=== PATIENT | female | born 1990 | race Caucasian/White ===

== ENCOUNTER 2016-06-26 18:11 | Emergency (ER) | payer OTHER ==
[2016-06-26 18:24] VITALS: BP 126/70; PULSE 93; TEMP 97.8; BMI 25.9
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
[2016-06-26 18:41] LABS: PH,URINE 8.5 (4.5-8); URINE APPEARANCE Clear; URINE BILIRUBIN Negative (NEGATIVE); URINE BLOOD Negative (NEGATIVE); URINE COLOR YELLOW; URINE GLUCOSE (UA) Negative (NEGATIVE); URINE KETONE Negative (NEGATIVE); URINE LEUK ESTERASE Negative (NEGATIVE); URINE NITRITE Negative (NEGATIVE); URINE PROTEIN Negative (NEGATIVE); URINE UROBILINOGEN 1.0 E.U/dl (0.2-1.0)
[2016-06-26 18:51] LABS: MEAN CELL VOLUME 89.4 fl (80-96)
[2016-06-26 18:59] LABS: BASOPHIL 0.6 % (0-2.0); EOSINOPHIL 1.2 % (0-4.5); MCH 28.5 pg (25.7-33.7); MCHC 31.9 g/dl (32.0-36.0); MEAN PLT VOLUME 10.3 fl (7.5-11.1); NEUTROPHILS 64.3 % (42.8-82.8); PLATELET COUNT 184 K/MM3 (134-434); RDW 12.8 % (11.6-15.6); WHITE BLOOD COUNT 6.9 K/mm3 (4.0-10.0)
[2016-06-26 19:09] LABS: ALBUMIN 4.1 g/dl (3.5-5.0); ALK PHOS 28 U/L (32-92); ANION GAP 5 (8-16); BILIRUBIN,TOTAL 0.3 mg/dl (0.2-1.0); CALCIUM 8.7 mg/dl (8.4-10.2); CO2 27 mmol/L (22-28); CREATININE 0.8 mg/dl (0.6-1.3); GLUCOSE,RANDOM 102 mg/dl (74-106); SGOT/AST 19 U/L (10-42); SGPT/ALT 11 U/L (10-40); TOT PROT 6.9 g/dl (6.4-8.3)
--- NOTE | 2016-06-26 19:15 | PDOC ---
*Physical Exam - Vital Signs Last Vital Signs Temp Pulse Resp BP Pulse Ox 97.8 F 93 H 18 126/70 100 06/26/16 18:17 06/26/16 18:17 06/26/16 18:17 06/26/16 18:17 06/26/16 18:17 <Blanco Lacy - Last Filed: 06/26/16 20:03> - Vital Signs Last Vital Signs Temp Pulse Resp BP Pulse Ox 97.8 F 93 H 18 126/70 100 06/26/16 18:17 06/26/16 18:17 06/26/16 18:17 06/26/16 18:17 06/26/16 18:17 <Zaid Mac - Last Filed: 06/26/16 23:06> ED Treatment Course - LABORATORY CBC & Chemistry Diagram: 06/26/16 18:40 06/26/16 18:40 - ADDITIONAL ORDERS Additional order review: Laboratory Results 06/26/16 06/26/16 18:40 18:32 Sodium 135 L Potassium 4.2 Chloride 103 Carbon Dioxide 27 Anion Gap 5 L BUN 9 Creatinine 0.8 Creat Clearance w eGFR > 60 Random Glucose 102 Calcium 8.7 Total Bilirubin 0.3 AST 19 ALT 11 Alkaline Phosphatase 28 L Total Protein 6.9 Albumin 4.1 Lipase 33 Urine Color Yellow Urine Appearance Clear Urine pH 8.5 H Ur Specific [place] 1.015 Urine Protein Negative Urine Glucose (UA) Negative Urine Ketones Negative Urine Blood Negative Urine Nitrite Negative Urine Bilirubin Negative Urine Urobilinogen 1.0 e.u/dl Ur Leukocyte Esterase Negative Urine HCG, Qual Negative 06/26/16 18:40 RBC 4.86 MCV 89.4 MCHC 31.9 L RDW 12.8 MPV 10.3 Neutrophils % 64.3 Lymphocytes % 26.1 Monocytes % 7.8 Eosinophils % 1.2 Basophils % 0.6 <Blanco Lacy - Last Filed: 06/26/16 20:03> - LABORATORY CBC & Chemistry Diagram: 06/26/16 18:40 06/26/16 18:40 - ADDITIONAL ORDERS Additional order review: Laboratory Results 06/26/16 06/26/16 18:40 18:32 Sodium 135 L Potassium 4.2 Chloride 103 Carbon Dioxide 27 Anion Gap 5 L BUN 9 Creatinine 0.8 Creat Clearance w eGFR > 60 Random Glucose 102 Calcium 8.7 Total Bilirubin 0.3 AST 19 ALT 11 Alkaline Phosphatase 28 L Total Protein 6.9 Albumin 4.1 Lipase 33 Urine Color Yellow Urine Appearance Clear Urine pH 8.5 H Ur Specific [place] 1.015 Urine Protein Negative Urine Glucose (UA) Negative Urine Ketones Negative Urine Blood Negative Urine Nitrite Negative Urine Bilirubin Negative Urine Urobilinogen 1.0 e.u/dl Ur Leukocyte Esterase Negative Urine HCG, Qual Negative <Zaid Mac - Last Filed: 06/26/16 23:06> Medical Decision Making - Medical Decision Making 06/26/16 20:03 CONTINUATION CARE: The patient is experiencing pain in her upper right rib cage. Pain is exasperated by deep inhalation and eating. We are waiting on X- Ray and labs. <Blanco Lacy - Last Filed: 06/26/16 20:03> *DC/Admit/Observation/Transfer <Blanco Lacy - Last Filed: 06/26/16 20:03> - Discharge Dispostion Admit: No - Attestations Physician Attestion: 06/26/16 19:15 I, Dr. Zaid Mac, attest that this document has been prepared under my direction and personally reviewed by me in its entirety. I further attest, that it accurately reflects all work, treatment, procedures and medical decision -making performed by me. <Zaid Mac - Last Filed: 06/26/16 23:06> Diagnosis at time of Disposition: Flank pain, Rib pain on right side - Discharge Dispostion Disposition: HOME Condition at time of disposition: Good
[2016-06-26] MEDS ORDERED: ONDANSETRON 4 MG/2 ML VIAL IVPUSH ONE (20:53)
[2016-06-26] MEDS ORDERED: methylPREDNISolone NA SUCC 125 MG/2 ML VIAL IVPUSH ONE (20:53)
[2016-06-26] MEDS ORDERED: FAMOTIDINE 20 MG/50 ML IVPB 50 ML IVPB ONE ×2 (20:53→20:57)
[2016-06-26] MEDS ORDERED: HYDROmorphone HCL CARPU-JECT 1 MG/1 ML DISP.SYRIN IVPUSH ONE (20:53)
[2016-06-26] MEDS ORDERED: SODIUM CHLORIDE 1,000 ML IV STA (20:55)
[2016-06-26] MEDS ORDERED: HYDROmorphone HCL CARPU-JECT 2 MG/1 ML DISP.SYRIN ONE (20:57)
[2016-06-26] MEDS ORDERED: methylPREDNISolone NA SUCC 125 MG/2 ML VIAL ONE (20:57)
[2016-06-26] MEDS ORDERED: ONDANSETRON 4 MG/2 ML VIAL ONE (20:58)
== END 2016-06-26 23:17 | disposition home or self-care (01) ==
LOC: FER 18:11
PROC: 3E033NZ Introduction of Analgesics, Hypnotics, Sedatives into Peripheral Vein, Percutaneous Approach (ICD-10-PCS; principal; 2016-06-26)
PROC: 3E033GC Introduction of Other Therapeutic Substance into Peripheral Vein, Percutaneous Approach (ICD-10-PCS; 2016-06-26)
PROC: 3E0337Z Introduction of Electrolytic and Water Balance Substance into Peripheral Vein, Percutaneous Approach (ICD-10-PCS; 2016-06-26)
DX: R07.81 Pleurodynia (principal); R10.31 Right lower quadrant pain; E03.9 Hypothyroidism, unspecified
CPT/HCPCS: 36415; 71275-TC; 76705-TC; 80053; 81003; 83690; 84703; 85025; 99285-25

== ENCOUNTER 2016-07-15 10:27 | Emergency (ER) | payer OTHER ==
[2016-07-15 10:31] VITALS: BP 134/90; PULSE 84; TEMP 98.8; BMI 25.9
--- NOTE | 2016-07-15 11:25 | PDOC ---
History of Present Illness - General Chief Complaint: Cold Symptoms Stated Complaint: BODY ACHES, FEVER, COUGH Time Seen by Provider: 07/15/16 10:58 History Source: Patient Exam Limitations: No Limitations - History of Present Illness Initial Comments: 07/15/16 11:18 This is a 25-year-old female with a history of hypothyroidism presented to the emergency department with complaints of cough and myalgias Symptoms have been present for the past 4 days (+) fevers (+) headache (+) post nasal drip (+) myalgias Taking motrin/tylenol for her symptoms but remains febrile No recent travel (+) ill contact = father (who was diagnosed with Influenza) No chest pain No dyspnea on exertion Cough is productive of yellow sputum (+) influenza vaccination PMH: Hypothyroidism PSH: denies Medications: Hypothyroidism, Synthroid ALL: NKDA Social: denies alcohol drug cigarette use PMD: [place] GENERAL/CONSTITUTIONAL: Yes: fever, chills No: weakness, loss of appetite. HEAD, EYES, EARS, NOSE AND THROAT: No: change in vision, ear pain, discharge, sore throat, throat swelling. CARDIOVASCULAR: No: chest pain, lightheadedness, palpitations, syncope RESPIRATORY: Yes: cough, shortness of breath No: wheezing, hemoptysis, stridor. GASTROINTESTINAL: No: nausea, vomiting, diarrhea, abdominal cramping, rectal bleeding, constipation. GENITOURINARY: No: dysuria, hematuria, frequency, urgency, flank pain. MUSCULOSKELETAL: Yes: myalgias No: back pain, neck pain, joint pain, muscle swelling or pain SKIN: No: lesions, pallor, rash or easy bruising. NEUROLOGIC: No: headache, vertigo, paresthesias, weakness ENDOCRINE: No: unexplained weight gain or loss HEMATOLOGIC/LYMPHATIC: No: anemia, easy bleeding, swelling nodes. GENERAL: The patient is in no acute distress. HEAD: Normal with no signs of trauma. EYES: PERRLA, EOMI, sclera anicteric, conjunctiva clear. ENT: Ears normal, nares patent, oropharynx clear without exudates. Moist mucous membranes. NECK: Normal range of motion, supple without lymphadenopathy, JVD, or masses. LUNGS: Breath sounds equal, clear to auscultation bilaterally. No wheezes, and no crackles. HEART:Regular rate and rhythm, normal S1 and S2 without murmur, rub or gallop. ABDOMEN: Soft, nontender, normoactive bowel sounds. No guarding, no rebound. No masses palpable. EXTREMITIES: Normal range of motion, no edema. No clubbing or cyanosis. No erythema, or tenderness. NEUROLOGICAL: Cranial nerves II through XII grossly intact. Normal speech. No focal neurological deficits. MUSCULOSKELETAL: Back non-tender to palpation, no CVA tenderness SKIN: Warm, Dry, normal turgor, no rashes or lesions noted. 07/15/16 11:28 Past History - Past Medical History Allergies/Adverse Reactions: Allergies Allergy/AdvReac Type Severity Reaction Status Date / Time iodine Allergy Verified 07/15/16 10:29 SEAFOOD Allergy Severe Hives Uncoded 07/15/16 10:29 WALNUTS Allergy Severe Swelling Uncoded 07/15/16 10:29 Home Medications: Ambulatory Orders Thyroid,Pork [[place] Thyroid] 15 mg PO DAILY 07/21/14 Azithromycin [Zithromax 250mg Tablets -] 250 mg PO UTDICT #6 tab 07/15/16 Guaifenesin [Mucinex -] 600 mg PO BID #14 tablet.er 07/15/16 Oseltamivir Phosphate [Tamiflu -] 75 mg PO BID #10 capsule 07/15/16 Thyroid Disease: Yes (hypo) - Immunization History Immunization Up to Date: No - Psycho/Social/Smoking Cessation Hx Anxiety: No Suicidal Ideation: No Smoking Status: No Smoking History: Never smoked Number of Cigarettes Smoked Daily: 0 Hx Alcohol Use: No Drug/Substance Use Hx: No Substance Use Type: None *Physical Exam - Vital Signs Last Vital Signs Temp Pulse Resp BP Pulse Ox 98.8 F 84 16 134/90 100 07/15/16 10:28 07/15/16 10:28 07/15/16 10:28 07/15/16 10:28 07/15/16 10:28 Medical Decision Making - Medical Decision Making 07/15/16 11:25 Will discharge to home Does not want x ray or flu swab Will discharge on tamiflu and Azithromycin Clinical impression: upper respiratory infection *DC/Admit/Observation/Transfer Diagnosis at time of Disposition: Viral upper respiratory illness - Discharge Dispostion Disposition: HOME Condition at time of disposition: Improved Admit: No - Prescriptions Prescriptions: Guaifenesin [Mucinex -] 600 mg PO BID #14 tablet.er Oseltamivir Phosphate [Tamiflu -] 75 mg PO BID #10 capsule Azithromycin [Zithromax 250mg Tablets -] 250 mg PO UTDICT #6 tab - Referrals Referrals: Dillan Yi MD [Primary Care Provider] - - Patient Instructions Printed Discharge Instructions: DI for Viral Upper Respiratory Infection -- Adult Additional Instructions: Return to the emergency department immediately with ANY new, persistent or worsening symptoms. Continue any medications as previously prescribed by your physician. You should follow up with your primary doctor as soon as possible regarding today's emergency department visit. . Please make sure your doctor reviews the results of your emergency evaluation. Thank you for coming to the [facility] today for your care. It was a pleasure to see you today. Please note that your evaluation is INCOMPLETE until you follow-up with your doctor. - Post Discharge Activity Work/School Note: Back to Work
== END 2016-07-15 11:45 | disposition home or self-care (01) ==
LOC: FER 10:27
DX: J06.9 Acute upper respiratory infection, unspecified (principal); B97.89 Other viral agents as the cause of diseases classified elsewhere
CPT/HCPCS: 99281-25

== ENCOUNTER 2016-12-26 22:25 | Emergency (ER) | payer OTHER ==
[2016-12-26 22:32] VITALS: BP 117/80; PULSE 85; TEMP 97.9; BMI 25.8
--- NOTE | 2016-12-26 22:42 | PDOC ---
History of Present Illness - General Chief Complaint: Cold Symptoms Stated Complaint: COUGH Time Seen by Provider: 12/26/16 22:39 History Source: Patient Exam Limitations: No Limitations - History of Present Illness Initial Comments: 12/26/16 22:43 This is a 26-year-old female who comes in complaining of URI-type symptoms cough , congestion and hoarse voice. Patient denies any fevers or chills. Patient said her cough is nonproductive. Patient denies any chest pain or abdominal pain. Patient is otherwise healthy. PAST MEDICAL HISTORY: no significant history PAST SURGICAL HISTORY: no significant history FAMILY HISTORY: no pertinant history SOCIAL HISTORY: Pt lives with family and is employed. MEDICATIONS: reviewed ALLERGIES: As per nursing notes Review of Systems General: No fevers or chills, no weakness, no weight loss HEENT: No change in vision. No sore throat,. No ear pain CardioVascular: No chest pain or shortness of breath Respiratory:+ Coughing, no wheezing Gastrointestinal: no nausea, vomitting, diarrhea or constipation, No rectal bleeding Genitourinary: No dysuria, hematuria, or frequency Musculoskeletal: No joint or muscle pain or swelling Neurologic: No headache, vertigo, dizziness or loss of consciousness Psychiatric: nor depression Skin: No rashes or easy bruising Endocrine: no increased thirst or abnormal weight change Allergic: no skin or latex allergy All other systems reviewed and normal Exam: General: Well-nourished well-developed individual, no acute distress HEENT: Throat: Normal, tonsils normal, no erythema or exudate Neck: Supple, no meningeal signs, no lymphadenopathy Eyes::Pupils equal reactive and round, extraocular motion intact Chest: Nontender to palpation Cardiac: S1-S2 normal, regular rate and rhythm, no murmurs rubs or gallops Respiratory: Lungs clear to auscultation bilateral Abdomen: Soft, nondistended, normal bowel sounds, nontender to palpation diffusely Extremities: Warm, dry, no cyanosis, clubbing, or edema Skin: No rashes Neuro: Alert and oriented x3, nonfocal exam, grossly intact, normal gait Psych: Normal mood and affect 12/26/16 23:14 Chest x-ray no acute pathology Assessment and plan: This is a 26-year-old female who comes in complaining of cough 2 days. Patient's lungs were clear and her chest x-ray is negative however I did give her a prescription for Ventolin and some Tessalon Perles as she said that they have helped in the past. Patient does have a primary care doctor she can follow-up with. Past History - Past Medical History Allergies/Adverse Reactions: Allergies Allergy/AdvReac Type Severity Reaction Status Date / Time iodine Allergy Verified 07/15/16 10:29 SEAFOOD Allergy Severe Hives Uncoded 07/15/16 10:29 WALNUTS Allergy Severe Swelling Uncoded 07/15/16 10:29 Home Medications: Ambulatory Orders Thyroid,Pork [[place] Thyroid] 15 mg PO DAILY 07/21/14 Albuterol Sulfate Inhaler - [Ventolin Hfa Inhaler -] 1 - 2 inh PO Q4H #1 inhaler 12/26/16 Benzonatate [Tessalon Pearls -] 100 mg PO TID #21 capsule 12/26/16 Thyroid Disease: Yes (hypo) - Immunization History Immunization Up to Date: No - Psycho/Social/Smoking Cessation Hx Anxiety: No Suicidal Ideation: No Smoking Status: No Smoking History: Unknown if ever smoked Have you smoked in the past 12 months: No Number of Cigarettes Smoked Daily: 0 Information on smoking cessation initiated: No Hx Alcohol Use: No Drug/Substance Use Hx: No Substance Use Type: None *Physical Exam - Vital Signs Last Vital Signs Temp Pulse Resp BP Pulse Ox 97.9 F 85 14 117/80 100 12/26/16 22:29 12/26/16 22:29 12/26/16 22:29 12/26/16 22:29 12/26/16 22:29 *DC/Admit/Observation/Transfer Diagnosis at time of Disposition: Viral upper respiratory illness - Discharge Dispostion Disposition: HOME Condition at time of disposition: Good Admit: No - Prescriptions Prescriptions: Benzonatate [Tessalon Pearls -] 100 mg PO TID #21 capsule Albuterol Sulfate Inhaler - [Ventolin Hfa Inhaler -] 1 - 2 inh PO Q4H #1 inhaler - Patient Instructions Printed Discharge Instructions: DI for Viral Upper Respiratory Infection -- Adult Additional Instructions: Use the Ventolin inhaler 2 puffs as often as every 4-6 hours if needed for coughing and shortness of breath. In addition to that I am giving you a cough suppressant called Tessalon Perles U can take 13 times a day. Do not chew the Tessalon Perle as it will numb your mouth and be very uncomfortable. Return to the emergency department immediately with ANY new, persistent or worsening symptoms. Continue any medications as previously prescribed by your physician. You should follow up with your primary doctor as soon as possible regarding today's emergency department visit. . Please make sure your doctor reviews the results of your emergency evaluation. Thank you for coming to the Emergency Department today for your care. It was a pleasure to see you today. Please note that your evaluation is INCOMPLETE until you follow-up with your doctor.
[2016-12-26] MEDS ORDERED: ALBUTEROL SO4 0.083% IH SOL 2.5 MG/3 ML VIAL.NEB. NEB ONE (23:21)
== END 2016-12-26 23:17 | disposition home or self-care (01) ==
LOC: FER 22:25
DX: J06.9 Acute upper respiratory infection, unspecified (principal); B97.89 Other viral agents as the cause of diseases classified elsewhere; E03.9 Hypothyroidism, unspecified
CPT/HCPCS: 71020-TC; 99282-25

== ENCOUNTER 2018-02-05 07:15 | Emergency (ER) | payer OTHER ==
[2018-02-05 07:24] VITALS: BMI 24.5
--- NOTE | 2018-02-05 07:40 | PDOC ---
History of Present Illness - History of Present Illness Initial Comments: 02/05/18 08:54 The patient is a 27 year old female, with a significant past medical history of anxiety, hypothyroidism, and herniated disc, who presents to the emergency department with, worsening periumbilical pain. As per patient her pain initially onset as intermittent one week ago. Over the past two days, she reports her symptoms have become constant with associated nausea. She describes her pain as a knot-like feeling worsening after certain foods and drinks such as coffee. Her pain is alleviated after hot tea. She has tried antiacids, without relief. Her last bowel movement was yesterday. Her LMP was 01/12/18. She denies recent fevers, chills, headache or dizziness. She denies recent vomit , diarrhea or constipation. She denies recent dysuria, frequency, urgency or hematuria. She denies recent chest pain or shortness of breath. Allergies: Iodine, shellfish, nuts. Social history: Nonsmoker. Denies EtOH use and recreational drug use. Primary Care Physician: Dr. Yi <Kirk Cortés - Last Filed: 02/05/18 08:54> - General History Source: Patient Exam Limitations: No Limitations <Katiuska Lizarraga - Last Filed: 02/05/18 13:50> - General Chief Complaint: Pain, Acute Stated Complaint: PAIN Time Seen by Provider: 02/05/18 07:39 Past History <Kirk Cortés - Last Filed: 02/05/18 08:54> - Travel Traveled outside of the country in the last 30 days: No Close contact w/someone who was outside of country & ill: No - Past Medical History COPD: No Thyroid Disease: Yes (hypo) - Immunization History Immunization Up to Date: Yes - Suicide/Smoking/Psychosocial Hx Smoking Status: No Smoking History: Unknown if ever smoked Have you smoked in the past 12 months: No Number of Cigarettes Smoked Daily: 0 Hx Alcohol Use: No Drug/Substance Use Hx: No Substance Use Type: None <Katiuska Lizarraga - Last Filed: 02/05/18 13:50> - Past Medical History Allergies/Adverse Reactions: Allergies Allergy/AdvReac Type Severity Reaction Status Date / Time iodine Allergy Verified 02/05/18 07:30 SEAFOOD Allergy Severe Hives Uncoded 02/05/18 07:30 WALNUTS Allergy Severe Swelling Uncoded 02/05/18 07:30 Home Medications: Ambulatory Orders Ibuprofen 800 mg PO TID #30 tablet 02/05/18 Thyroid,Pork [Customer Operations Representative Thyroid] 30 mg PO DAILY 02/05/18 Review of Systems - Review of Systems Able to Perform ROS?: Yes Comments:: 02/05/18 07:40 CONSTITUTIONAL: Absent: fever, chills, diaphoresis, generalized weakness, malaise, loss of appetite HEENT: Absent: rhinorrhea, nasal congestion, throat pain, throat swelling, difficulty swallowing, mouth swelling, ear pain, eye pain, visual Changes CARDIOVASCULAR: Absent: chest pain, loss of consciousness, palpitations, irregular heart rate, peripheral edema RESPIRATORY: Absent: cough, shortness of breath, dyspnea with exertion, orthopnea, wheezing, stridor, hemoptysis GASTROINTESTINAL: Absent: abdominal pain, abdominal distension, nausea, vomiting, diarrhea, constipation, melena, hematochezia GENITOURINARY: Absent: dysuria, frequency, urgency, hesitancy, hematuria, flank pain, genital pain MUSCULOSKELETAL: Absent: myalgia, arthralgia, joint swelling SKIN: Absent: rash, itching, pallor HEMATOLOGIC/IMMUNOLOGIC: Absent: easy bleeding, easy bruising, lymphadenopathy, frequent infections ENDOCRINE: Absent: unexplained weight gain, unexplained weight loss, heat intolerance, cold intolerance NEUROLOGIC: Absent: headache, focal weakness or paresthesias, dizziness, unsteady gait, seizure, mental status changes, bladder or bowel incontinence PSYCHIATRIC: Absent: anxiety, depression, suicidal or homicidal ideation, hallucinations. Is the patient limited Hebrew proficient: No <Katiuska Lizarraga - Last Filed: 02/05/18 13:50> *Physical Exam - Vital Signs Last Vital Signs Temp Pulse Resp BP Pulse Ox 98.2 F 88 16 113/66 99 02/05/18 07:21 02/05/18 07:21 02/05/18 07:21 02/05/18 07:21 02/05/18 07:21 <Kirk Cortés - Last Filed: 02/05/18 08:54> - Vital Signs Last Vital Signs Temp Pulse Resp BP Pulse Ox 98.2 F 88 16 113/66 99 02/05/18 07:21 02/05/18 07:21 08/15/18 07:21 02/05/18 07:21 02/05/18 07:21 - Physical Exam Comments: 02/05/18 07:40 GENERAL: Well developed, well nourished. Awake and alert. No acute distress. HEENT: Normocephalic, atraumatic. PERRLA, EOMI. No conjunctival pallor. Sclera are non- icteric. Moist mucous membranes. Oropharynx is clear. NECK: Supple. Full ROM. No JVD. Carotid pulses 2+ and symmetric, without bruits. No thyromegaly. No lymphadenopathy. CARDIOVASCULAR: Regular rate and rhythm. No murmurs, rubs, or gallops. Distal pulses are 2+ and symmetric. PULMONARY: No evidence of respiratory distress. Lungs clear to auscultation bilaterally. No wheezing, rales or rhonchi. ABDOMINAL: Soft. Non-tender. Non-distended. No rebound or guarding. No organomegaly. Normoactive bowel sounds. MUSCULOSKELETAL Normal range of motion at all joints. No bony deformities or tenderness. No CVA tenderness. EXTREMITIES: No cyanosis. No clubbing. No edema. No calf tenderness. SKIN: Warm and dry. Normal capillary refill. No rashes. No jaundice. NEUROLOGICAL: Alert, awake, appropriate. Cranial nerves 2-12 intact. No deficits to light touch and temperature in face, upper extremities and lower extremities. No motor deficits in the in face, upper extremities and lower extremities. Normoreflexic in the upper and lower extremities. Normal speech. Toes are down- going bilaterally. Gait is normal without ataxia. PSYCHIATRIC: Cooperative. Good eye contact. Appropriate mood and affect. <Katiuska Lizarraga - Last Filed: 02/05/18 13:50> ED Treatment Course - LABORATORY CBC & Chemistry Diagram: 02/05/18 08:25 02/05/18 08:25 - ADDITIONAL ORDERS Additional order review: Laboratory Results 02/05/18 02/05/18 08:25 08:25 Lipase Cancelled Urine HCG, Qual Negative 02/05/18 08:25 RBC 4.44 MCV 90.0 MCHC 34.0 RDW 13.1 MPV 11.0 Neutrophils % 66.1 Lymphocytes % 23.5 Monocytes % 9.2 Eosinophils % 0.8 Basophils % 0.4 - Medications Given in the ED: ED Medications Discontinued Medications Generic Name Dose Route Start Last Admin Trade Name Nessa PRN Reason Stop Dose Admin Acetaminophen 1,000 mg 02/05/18 08:21 02/05/18 08:44 Ofirmev Injection - IVPB 02/05/18 08:22 1,000 mg ONCE ONE Administration <OksanajessicaKirk - Last Filed: 02/05/18 08:54> - LABORATORY CBC & Chemistry Diagram: 02/05/18 08:25 02/05/18 08:25 <Katiuska Lizarraga - Last Filed: 02/05/18 13:50> Medical Decision Making - Medical Decision Making 02/05/18 13:16 A portion of this note was documented by scribe services under my direction. I have reviewed the details of the note, within reason, and agree with the documentation with the following case summary and management plan written by me. Patient is a 27-year-old female with past medical history of hypothyroidism, who presents to the emergency department today with left lower quadrant pain as well as epigastric tenderness. On exam patient states that she also has some periumbilical tenderness and some rebound. Lab work is unremarkable, no leukocytosis, H&H is stable. No gross electorally abnormalities no UTI patient is not . Abdominal ultrasound shows no evidence of cholecystitis at this time. CT of the abdomen shows multiple cysts on both ovaries with fluid in the cul-de- sac suspicious for ruptured cyst. Patient reports improvement of her symptoms after IV Tylenol, Toradol. Given the patient's pain has improved since presentation, low suspicion for ovarian torsion. We'll discharge home at this time with strict return precautions. Patient understands that if her pain is to get worse she is to return to the emergency department for an ultrasound of her ovaries, to rule out torsion. Discussed the risks of torsion and why it is important to return to the emergency department if she has worsening pain, fevers, chills, nausea or vomiting. Patient states that she will follow up with an STILL TENDER. Multiple referrals given as patient does not have one. Patient understands all discharge instructions and all questions were answered. <Katiuska Lizarraga - Last Filed: 02/05/18 13:50> *DC/Admit/Observation/Transfer - Attestations Scribe Attestion: 02/05/18 08:54 Documentation prepared by Kirk Cortés, acting as medical equipment sales for Deon Connelly MD. <Kirk Cortés - Last Filed: 02/05/18 08:54> - Discharge Dispostion Decision to Admit order: No <Katiuska Lizarraga - Last Filed: 02/05/18 13:50> Diagnosis at time of Disposition: Ovarian cyst rupture - Discharge Dispostion Disposition: HOME Condition at time of disposition: Stable - Prescriptions Prescriptions: Ibuprofen 800 mg PO TID #30 tablet - Referrals Referrals: Dillna Yi MD [Primary Care Provider] - Dorothy Phillips DO [Staff Physician] - Talya Castellon MD [Staff Physician] - Lita Winston MD [Staff Physician] - - Patient Instructions Printed Discharge Instructions: DI for Ovarian Cyst Additional Instructions: Your pain is most likely caused by a ruptured ovarian cyst. Please take Motrin 800 mg every 8 hours as needed for pain. Your CT scan also showed other ovarian cyst both her right and left ovary. As discussed, if your pain worsens, develop nausea or vomiting, you should return to the emergency department immediately for evaluation for ovarian torsion. Please follow-up with an STILL TENDER for further evaluation. Referrals have been provided for you. Again return to the emergency department if you develop fevers, chills, worsening abdominal pain, nausea, vomiting, or give any changes in your symptoms. - Post Discharge Activity Forms/Work/School Notes: Back to Work
[2018-02-05] MEDS ORDERED: ACETAMINOPHEN 1000 MG/100 ML VIAL (NON FORMULARY) IVPB ONE (08:21)
[2018-02-05] MEDS ORDERED: FAMOTIDINE 20 MG/50 ML IVPB 20 MG/50 ML MG IVPB ONE ×2 (08:21→08:39)
[2018-02-05] MEDS ORDERED: SODIUM CHLORIDE 1,000 ML IV STA (08:21)
--- NOTE | 2018-02-05 08:37 | PDOC ---
*Physical Exam - Vital Signs Last Vital Signs Temp Pulse Resp BP Pulse Ox 98.2 F 88 16 113/66 99 02/05/18 07:21 02/05/18 07:21 02/05/18 07:21 02/05/18 07:21 02/05/18 07:21 - Physical Exam Comments: 02/05/18 08:36 The patient was examined by ROXY Lizarraga under my direct supervision. I personally evaluated the patient. I concur with the above findings and the plan of care. ED Treatment Course - LABORATORY CBC & Chemistry Diagram: 02/05/18 08:25 02/05/18 08:25 *DC/Admit/Observation/Transfer Diagnosis at time of Disposition: Ovarian cyst rupture - Discharge Dispostion Disposition: HOME Condition at time of disposition: Stable - Prescriptions Prescriptions: Ibuprofen 800 mg PO TID #30 tablet - Referrals Referrals: Lita Winston MD [Staff Physician] - Dorothy Phillips DO [Staff Physician] - Talya Castellon MD [Staff Physician] - Dillan Yi MD [Primary Care Provider] - - Patient Instructions Printed Discharge Instructions: DI for Ovarian Cyst Additional Instructions: Your pain is most likely caused by a ruptured ovarian cyst. Please take Motrin 800 mg every 8 hours as needed for pain. Your CT scan also showed other ovarian cyst both her right and left ovary. As discussed, if your pain worsens, develop nausea or vomiting, you should return to the emergency department immediately for evaluation for ovarian torsion. Please follow-up with an SECOND OPERATOR for further evaluation. Referrals have been provided for you. Again return to the emergency department if you develop fevers, chills, worsening abdominal pain, nausea, vomiting, or give any changes in your symptoms. - Post Discharge Activity Forms/Work/School Notes: Back to Work
[2018-02-05] MEDS ORDERED: ACETAMINOPHEN INJECTION 100 ML IVPB ONE (08:39)
[2018-02-05 08:45] LABS: BASO % 0.4 % (0-2.0); EOS % 0.8 % (0-4.5); HEMATOCRIT 39.9 % (32.4-45.2); HEMOGLOBIN 13.6 GM/dL (10.7-15.3); LYMPH % 23.5 % (8-40); MCH 30.6 pg (25.7-33.7); MONO % 9.2 % (3.8-10.2); NEUT % 66.1 % (42.8-82.8); PLATELET COUNT 148 K/MM3 (134-434); RBC 4.44 M/mm3 (3.60-5.2); RDW 13.1 % (11.6-15.6); WHITE BLOOD COUNT 5.5 K/mm3 (4.0-10.0)
[2018-02-05 08:53] LABS: HCG,QUALITATIVE URINE Negative
[2018-02-05 09:00] LABS: URINE APPEARANCE CLEAR; URINE BILIRUBIN NEGATIVE (<2.0 mg/dL); URINE COLOR YELLOW; URINE GLUCOSE (UA) NEGATIVE (NEGATIVE); URINE KETONE NEGATIVE (NEGATIVE); URINE LEUK ESTERASE NEGATIVE (NEGATIVE); URINE NITRITE NEGATIVE (NEGATIVE); URINE PROTEIN NEGATIVE (NEGATIVE); URINE UROBILINOGEN NEGATIVE mg/dL (0.2-1.0)
[2018-02-05 09:08] LABS: ALBUMIN 3.9 g/dl (3.4-5.0); ANION GAP 4 (8-16); BLOOD UREA NITROGEN 9 mg/dL (7-18); CALCIUM 8.9 mg/dL (8.5-10.1); CHLORIDE 106 mmol/L (98-107); CO2 30 mmol/L (21-32); GLUCOSE,RANDOM 95 mg/dL (74-106); LIPASE 115 U/L (73-393); SGOT/AST 9 U/L (15-37); SGPT/ALT 17 U/L (12-78); SODIUM 140 mmol/L (136-145)
[2018-02-05 09:10] LABS: ALK PHOS 28 U/L (45-117); BILIRUBIN,TOTAL 0.3 mg/dL (0.2-1.0); TOT PROT 7.1 g/dl (6.4-8.2)
[2018-02-05 12:54] VITALS: BP 114/60; PULSE 74; TEMP 98
[2018-02-05] MEDS ORDERED: KETOROLAC TROMETHAMINE 15 MG/ML VIAL ONE (12:59)
[2018-02-05] MEDS ORDERED: KETOROLAC TROMETHAMINE 15 MG/ML VIAL IM ONE (13:13)
== END 2018-02-05 14:05 | disposition home or self-care (01) ==
LOC: JER 07:15
PROC: 3E0233Z Introduction of Anti-inflammatory into Muscle, Percutaneous Approach (ICD-10-PCS; principal; 2018-02-05)
PROC: 3E033GC Introduction of Other Therapeutic Substance into Peripheral Vein, Percutaneous Approach (ICD-10-PCS; 2018-02-05)
PROC: 3E033GC Introduction of Other Therapeutic Substance into Peripheral Vein, Percutaneous Approach (ICD-10-PCS; 2018-02-05)
PROC: 3E033NZ Introduction of Analgesics, Hypnotics, Sedatives into Peripheral Vein, Percutaneous Approach (ICD-10-PCS; 2018-02-05)
DX: N83.202 Unspecified ovarian cyst, left side (principal); N83.201 Unspecified ovarian cyst, right side
CPT/HCPCS: 36415; 74177-TC; 76705-TC; 80053; 81003; 83690; 84703; 85025; 87086; 99284-25; J0131; J7030

== ENCOUNTER 2018-08-22 01:04 | Emergency (ER) | payer OTHER ==
--- NOTE | 2018-08-22 02:46 | PDOC ---
Attending Attestation - Resident Resident Name: Yumiko Perrin - ED Attending Attestation I have performed the following: I have examined & evaluated the patient, The case was reviewed & discussed with the resident, I agree w/resident's findings & plan - HPI HPI: 08/22/18 02:42 27-year-old healthy female with history of sinusitis with recent exacerbation 3 days ago started on Z-Josep, DayQuil by her primary physician, also placed on ketorolac and cyclobenzaprine for TMJ symptoms presents now with episode of palpitations and headache/nausea that awoke her from sleep. Headache is frontal , feels like sinusitis headache, associated with some photophobia but no generalized headache/neck stiffness/vomiting. Palpitations but no actual chest pain or shortness of breath, no exercise limitations at baseline, no leg swelling or leg cramping. No PE risk factors or ACS risk factors. Took Flexeril earlier this evening, also admits to taking DayQuil prior to going to sleep - Physicial Exam PE: 08/22/18 02:43 Heart rate 90 at my examination, vital signs are within normal limits Well-appearing, eyes open with lights on in the room, conversant and comfortable Neck is supple, oropharynx is clear Left frontal sinus tenderness to palpation without swelling or erythema or facial swelling Heart is regular without murmur, lungs are clear Abdomen benign Neurological exam is normal - Medical Decision Making 08/22/18 02:44 27-year-old female with recently diagnosed sinusitis presents with episode of palpitations and frontal headache. Well-appearing without red flags on history or physical exam, neurologically intact. Question adverse reaction to DayQuil which she took 3 hours prior to going to sleep, could be stimulant reaction. Exam is otherwise consistent with sinusitis and no evidence of other neurological process. Check EKG and chest x-ray given cardiac complaints of palpitations Toradol for headache/sinus discomfort Reassess and disposition accordingly Heart Score/ECG Review #1 ECG reviewed & interpreted by me at: 02:34 General ECG Interpretation: Sinus Rhythm, Normal Rate (94), Normal Intervals ( qtc 432, ?irbbb), No acute ischemic changes
[2018-08-22] MEDS ORDERED: KETOROLAC TROMETHAMINE 30 MG/1 ML VIAL IM ONE (03:45)
[2018-08-22] MEDS ORDERED: KETOROLAC TROMETHAMINE 15 MG/ML VIAL ONE (03:52)
--- NOTE | 2018-08-22 04:13 | PDOC ---
History of Present Illness - General Chief Complaint: Chest Pain Stated Complaint: CHEST TIGHTNESS,DIZZINESS Time Seen by Provider: 08/22/18 01:36 History Source: Patient Exam Limitations: No Limitations - History of Present Illness Initial Comments: 08/22/18 07:30 PT is a 27yo F with PMH of hypothyroidism presenting to ED with chest tightness , L sided headache, facial numbness that started around 10:30 at night. Pt was diagnosed with sinus infection and has been taking z pack and dayquil. She took the medications and started having the symptoms. She denies dizziness, numbness , tingling, fevers, chills, cough, chest pain, abdominal pain, n/v/d, syncope, neck stiffness, earache, sore throat. Currently menstruating PMD: neshiwat PMH: see hpi PSH: none Meds: see med rec Allergies: nkda Social: denies Past History - Past Medical History Allergies/Adverse Reactions: Allergies Allergy/AdvReac Type Severity Reaction Status Date / Time iodine Allergy Verified 08/22/18 01:41 SEAFOOD Allergy Severe Hives Uncoded 08/22/18 01:41 WALNUTS Allergy Severe Swelling Uncoded 08/22/18 01:41 Home Medications: Ambulatory Orders Thyroid,Pork [Registration Rep Thyroid] 30 mg PO DAILY 02/05/18 COPD: No Thyroid Disease: Yes (hypo) - Reproductive History Cervical CA: No Dysfunctional Uterine Bleeding: No Ectopic : No Endometrial CA: No Polycystic Ovaries: No Therapeutic (s) & number: No Tubal Ligation: No - Immunization History Td Vaccination: Yes TDAP Vaccination: Yes Immunization Up to Date: Yes - Suicide/Smoking/Psychosocial Hx Smoking Status: No Smoking History: Never smoked Have you smoked in the past 12 months: No Number of Cigarettes Smoked Daily: 0 Information on smoking cessation initiated: No Hx Alcohol Use: No Drug/Substance Use Hx: No Substance Use Type: None *Physical Exam - Vital Signs Last Vital Signs Temp Pulse Resp BP Pulse Ox 98.1 F 114 H 18 131/81 100 08/22/18 01:04 08/22/18 01:04 08/22/18 01:04 08/22/18 01:04 08/22/18 01:04 Moderate Sedation - Procedure Monitoring Vital Signs: Procedure Monitoring Vital Signs Temperature 98.1 F 08/22/18 01:04 Pulse Rate 114 H 08/22/18 01:04 Respiratory Rate 18 08/22/18 01:04 Blood Pressure 131/81 08/22/18 01:04 O2 Sat by Pulse Oximetry (%) 100 08/22/18 01:04 ED Treatment Course - RADIOLOGY Radiology Studies Ordered: Category Date Time Status CHEST PA & LAT [RAD] Stat Radiology 08/22/18 02:09 Taken - Medications Given in the ED: ED Medications Discontinued Medications Generic Name Dose Route Start Last Admin Trade Name Nessa PRN Reason Stop Dose Admin Ketorolac Tromethamine 15 mg 08/22/18 03:45 08/22/18 03:56 Toradol Injection - IM 08/22/18 03:46 15 mg ONCE ONE Administration Medical Decision Making - Medical Decision Making 08/22/18 07:32 PT is a 27yo F with PMH of hypothyroidism presenting to ED with chest tightness , L sided headache, facial numbness that started around 10:30 at night. Pt was diagnosed with sinus infection and has been taking z pack and dayquil. She took the medications and started having the symptoms. She denies dizziness, numbness , tingling, fevers, chills, cough, chest pain, abdominal pain, n/v/d, syncope, neck stiffness, earache, sore throat. Currently menstruating Vitals: HR 114. Exam: wnl Most likely from taking dayquil. Will do ekg to r/o arrhythmia. Will do cxr and upreg. Upreg sent per tech however lab said that they could not find specimen. Pt states that she is a virgin and is not sexually active. Will do cxr and give toradol for pain. Pt feeling better. EKG and CXR normal, no prolonged QT. No active infectious process, low suspicion for PE, ACS, PNA. will dc home. given strict return precautions. *DC/Admit/Observation/Transfer Diagnosis at time of Disposition: Chest tightness Headache Qualifiers: Headache type: unspecified Headache chronicity pattern: acute headache Intractability: not intractable Qualified Code(s): R51 - Headache - Discharge Dispostion Disposition: HOME Condition at time of disposition: Improved - Referrals Referrals: Dillan Yi MD [Staff Physician] - - Patient Instructions Printed Discharge Instructions: DI for Atypical Chest Pain, DI for Headache Additional Instructions: You were seen in the emergency room today for chest tightness and headache. The EKG and chest xray were normal. This could be caused by the medication. Please take the prescription medications as directed. Keep yourself hydrated. Come back to the emergency room if pain gets worse, you feel short of breath, you develop fever, you pass out, or if any new concerning symptom develops. Thank you - Post Discharge Activity
[2018-08-22 06:23] VITALS: BP 131/81; PULSE 114; TEMP 98.1; BMI 23.8
--- NOTE | 2018-08-22 10:18 | EKG ---
Test Reason : Blood Pressure : / mmHG Vent. Rate : 094 BPM Atrial Rate : 094 BPM P-R Int : 122 ms QRS Dur : 084 ms QT Int : 346 ms P-R-T Axes : 065 026 024 degrees QTc Int : 432 ms NORMAL SINUS RHYTHM POSSIBLE LEFT ATRIAL ENLARGEMENT NONSPECIFIC ST ABNORMALITY WHEN COMPARED WITH ECG OF 04-DEC-2010 16:28, NO SIGNIFICANT CHANGE WAS FOUND Confirmed by OLY PINA MD ([id number]) on 08/22/2018 10:17:52 AM Referred By: Confirmed By:OLY PINA MD
== END 2018-08-22 04:26 | disposition home or self-care (01) ==
LOC: JER 01:04
PROC: 3E0233Z Introduction of Anti-inflammatory into Muscle, Percutaneous Approach (ICD-10-PCS; principal; 2018-08-22)
DX: R07.89 Other chest pain (principal); R51 Headache; E03.9 Hypothyroidism, unspecified
CPT/HCPCS: 71046-TC-FY; 93005; 93010; 96372; 99281-25

== ENCOUNTER 2020-10-13 22:19 | Emergency (ER) | payer OTHER ==
[2020-10-13 22:26] VITALS: BMI 24.2
[2020-10-13 23:59] LABS: BASO % 0.2 % (0-2.0); EOS % 0.3 % (0-4.5); HEMATOCRIT 41.1 % (32.4-45.2); HEMOGLOBIN 14.1 GM/dL (10.7-15.3); LYMPH % 16.1 % (8-40); MCH 31.2 pg (25.7-33.7); MCHC 34.3 g/dl (32.0-36.0); MEAN CELL VOLUME 91.2 fl (80-96); MONO % 14.1 % (3.8-10.2); NEUT % 69.3 % (42.8-82.8); PLATELET COUNT 130 K/MM3 (134-434); RBC 4.51 M/mm3 (3.60-5.2); RDW 12.8 % (11.6-15.6); WHITE BLOOD COUNT 4.3 K/mm3 (4.0-10.0)
[2020-10-14 00:19] LABS: INR 1.07 (0.83-1.09); PROTHROMBIN TIME (PATIENT) 13.1 SEC (9.7-13.0)
[2020-10-14 00:22] LABS: ACTIVATED PTT 30.5 SECONDS (25.2-36.5)
[2020-10-14] MEDS ORDERED: MAG HYDROX/AL HYDROX/SIMETH -MYLANTA- ORAL SUSPENSION PO ONE (00:43)
[2020-10-14] MEDS ORDERED: ACETAMINOPHEN 325 MG TABLET (FP) PO ONE (00:43)
[2020-10-14] MEDS ORDERED: FAMOTIDINE 20 MG/50 ML IVPB 20 MG/50 ML MG IVPB ONE ×2 (00:43→01:19)
[2020-10-14 00:57] LABS: CHLORIDE 106 mmol/L (98-107); SODIUM 140 mmol/L (136-145)
[2020-10-14 00:59] LABS: ALBUMIN 3.6 g/dl (3.4-5.0); ANION GAP 5 MMOL/L (8-16); CALCIUM 8.7 mg/dL (8.5-10.1); CO2 29 mmol/L (21-32); LIPASE 107 U/L (73-393)
[2020-10-14 01:01] LABS: BLOOD UREA NITROGEN 8.1 mg/dL (7-18); GLUCOSE,RANDOM 95 mg/dL (74-106)
[2020-10-14 01:02] LABS: CREATININE 0.8 mg/dL (0.55-1.3); SGOT/AST 12 U/L (15-37); SGPT/ALT 17 U/L (13-61)
[2020-10-14 01:04] LABS: BILIRUBIN,TOTAL 0.4 mg/dL (0.2-1); TOT PROT 6.6 g/dl (6.4-8.2)
[2020-10-14 01:05] LABS: ALK PHOS 35 U/L (45-117)
[2020-10-14] MEDS ORDERED: ACETAMINOPHEN 325 MG TABLET (FP) ONE (01:18)
[2020-10-14] MEDS ORDERED: MAG HYDROX/AL HYDROX/SIMETH 30 ML UNIT-DOSE CUP ONE (01:18)
[2020-10-14 02:23] VITALS: BP 106/70; PULSE 83; TEMP 98.4
== END 2020-10-14 03:01 | disposition home or self-care (01) ==
LOC: JER 22:19
PROC: 3E033NZ Introduction of Analgesics, Hypnotics, Sedatives into Peripheral Vein, Percutaneous Approach (ICD-10-PCS; principal; 2020-10-14)
DX: R07.9 Chest pain, unspecified (principal)
CPT/HCPCS: 36415; 71045-TC-FY; 80053; 83690; 84443; 84484; 84703; 85025; 85379; 85610; 85730; 93005; 93010; 99285-25

== ENCOUNTER 2020-10-14 17:39 | Emergency (ER) | payer OTHER ==
[2020-10-14 18:04] VITALS: BP 118/73; PULSE 94; TEMP 97.8; BMI 22.9
== END 2020-10-14 18:45 | disposition home or self-care (01) ==
LOC: JER 17:39
DX: H61.23 Impacted cerumen, bilateral (principal)
CPT/HCPCS: 99282-25

== ENCOUNTER 2020-10-15 21:20 | Emergency (ER) | payer OTHER ==
[2020-10-15 21:46] VITALS: TEMP 98.4; BMI 22.9
[2020-10-15] MEDS ORDERED: SODIUM CHLORIDE 0.9% 500 ML INFUS.BAG IV ONE (21:53)
[2020-10-15 22:22] LABS: BASO % 0.2 % (0-2.0); EOS % 0.6 % (0-4.5); HEMATOCRIT 39.4 % (32.4-45.2); HEMOGLOBIN 13.5 GM/dL (10.7-15.3); LYMPH % 29.7 % (8-40); MCH 31.1 pg (25.7-33.7); MCHC 34.4 g/dl (32.0-36.0); MEAN CELL VOLUME 90.4 fl (80-96); MEAN PLT VOLUME 10.6 fl (7.5-11.1); MONO % 12.5 % (3.8-10.2); PLATELET COUNT 143 K/MM3 (134-434); RBC 4.35 M/mm3 (3.60-5.2); RDW 12.9 % (11.6-15.6); WHITE BLOOD COUNT 4.1 K/mm3 (4.0-10.0)
[2020-10-15] MEDS ORDERED: ONDANSETRON 4 MG/2 ML VIAL IVPUSH ONE (22:46)
[2020-10-15] MEDS ORDERED: FAMOTIDINE 20 MG/50 ML IVPB 20 MG/50 ML MG IVPB ONE ×2 (22:47→23:14)
[2020-10-15] MEDS ORDERED: MAG HYDROX/AL HYDROX/SIMETH -MYLANTA- ORAL SUSPENSION PO ONE (22:47)
[2020-10-15] MEDS ORDERED: ONDANSETRON 4 MG/2 ML VIAL ONE (23:13)
[2020-10-15] MEDS ORDERED: MAG HYDROX/AL HYDROX/SIMETH 30 ML UNIT-DOSE CUP ONE (23:13)
[2020-10-15 23:33] LABS: CHLORIDE 108 mmol/L (98-107); SODIUM 139 mmol/L (136-145)
[2020-10-15 23:36] LABS: ALBUMIN 3.4 g/dl (3.4-5.0); CALCIUM 8.8 mg/dL (8.5-10.1)
[2020-10-15 23:37] LABS: ANION GAP 7 MMOL/L (8-16); BLOOD UREA NITROGEN 6.1 mg/dL (7-18); CO2 24 mmol/L (21-32); GLUCOSE,RANDOM 93 mg/dL (74-106)
[2020-10-15 23:39] LABS: SGPT/ALT 17 U/L (13-61)
[2020-10-15 23:40] LABS: CREATININE 0.8 mg/dL (0.55-1.3); SGOT/AST 40 U/L (15-37)
[2020-10-15 23:41] LABS: BILIRUBIN,TOTAL 0.6 mg/dL (0.2-1); TOT PROT 6.8 g/dl (6.4-8.2)
[2020-10-15 23:42] LABS: ALK PHOS 33 U/L (45-117)
[2020-10-16 00:03] VITALS: BP 110/72; PULSE 80
== END 2020-10-16 00:04 | disposition home or self-care (01) ==
LOC: JER 21:20
PROC: 3E033NZ Introduction of Analgesics, Hypnotics, Sedatives into Peripheral Vein, Percutaneous Approach (ICD-10-PCS; principal; 2020-10-15)
PROC: 3E033GC Introduction of Other Therapeutic Substance into Peripheral Vein, Percutaneous Approach (ICD-10-PCS; 2020-10-15)
DX: U07.1 COVID-19 (principal)
CPT/HCPCS: 36415; 71045-TC-FY; 80053; 84484; 85025; 85379; 93005; 93010; 99285-25

== ENCOUNTER 2020-10-21 21:24 | Emergency (ER) | payer OTHER ==
[2020-10-21 21:32] VITALS: BP 127/84; TEMP 97; BMI 22.9
[2020-10-21] MEDS ORDERED: SODIUM CHLORIDE 0.9% 500 ML INFUS.BAG IV ONE (22:41)
[2020-10-21 23:20] LABS: BASO % 0.2 % (0-2.0); EOS % 0.5 % (0-4.5); HEMATOCRIT 40.8 % (32.4-45.2); HEMOGLOBIN 13.9 GM/dL (10.7-15.3); LYMPH % 19.2 % (8-40); MCH 30.8 pg (25.7-33.7); MCHC 34.1 g/dl (32.0-36.0); MEAN CELL VOLUME 90.4 fl (80-96); MEAN PLT VOLUME 10.8 fl (7.5-11.1); MONO % 9.5 % (3.8-10.2); NEUT % 70.6 % (42.8-82.8); PLATELET COUNT 179 K/MM3 (134-434); RBC 4.51 M/mm3 (3.60-5.2); RDW 12.3 % (11.6-15.6); WHITE BLOOD COUNT 8.3 K/mm3 (4.0-10.0)
[2020-10-21 23:29] LABS: INR 1.09 (0.83-1.09); PROTHROMBIN TIME (PATIENT) 13.4 SEC (9.7-13.0)
[2020-10-21 23:32] LABS: ACTIVATED PTT 30.6 SECONDS (25.2-36.5)
[2020-10-21 23:40] LABS: BLOOD UREA NITROGEN 17.8 mg/dL (7-18); CALCIUM 8.4 mg/dL (8.5-10.1); MAGNESIUM 2.3 mg/dL (1.8-2.4)
[2020-10-21 23:44] LABS: CREATININE 0.9 mg/dL (0.55-1.3)
[2020-10-21 23:45] LABS: BILIRUBIN,TOTAL 0.4 mg/dL (0.2-1); TOT PROT 7.4 g/dl (6.4-8.2)
[2020-10-21 23:47] LABS: ALBUMIN 4.2 g/dl (3.4-5.0)
[2020-10-21 23:56] VITALS: PULSE 91
== END 2020-10-22 00:04 | disposition home or self-care (01) ==
LOC: JER 21:24
DX: M62.831 Muscle spasm of calf (principal)
CPT/HCPCS: 36415; 80053; 83735; 85025; 85610; 85730; 93971-TC; 99284-25

== ENCOUNTER 2020-10-26 06:01 | Emergency (ER) | payer OTHER ==
[2020-10-26 07:00] VITALS: BMI 22.9
[2020-10-26] MEDS ORDERED: ONDANSETRON *ODT* 4 MG TABLET SL ONE (08:11)
[2020-10-26] MEDS ORDERED: ONDANSETRON 8 MG TABLET (FP) PO ONE (08:36)
[2020-10-26 09:29] LABS: URINE APPEARANCE CLEAR; URINE BILIRUBIN NEGATIVE (NEGATIVE); URINE COLOR YELLOW; URINE GLUCOSE (UA) NEGATIVE (NEGATIVE); URINE KETONE NEGATIVE (NEGATIVE); URINE LEUK ESTERASE NEGATIVE (NEGATIVE); URINE NITRITE NEGATIVE (NEGATIVE); URINE PROTEIN NEGATIVE (NEGATIVE); URINE UROBILINOGEN 0.2 mg/dL (0.2-1.0)
[2020-10-26] MEDS ORDERED: KETOROLAC TROMETHAMINE 15 MG/ML VIAL IVPUSH ONE (12:01)
[2020-10-26] MEDS ORDERED: KETOROLAC TROMETHAMINE 15 MG/ML VIAL ONE (12:17)
[2020-10-26 12:47] LABS: BASO % 0.3 % (0-2.0); EOS % 0.4 % (0-4.5); HEMATOCRIT 39.9 % (32.4-45.2); HEMOGLOBIN 13.9 GM/dL (10.7-15.3); LYMPH % 22.7 % (8-40); MCH 31.3 pg (25.7-33.7); MCHC 34.7 g/dl (32.0-36.0); MEAN CELL VOLUME 90.2 fl (80-96); MEAN PLT VOLUME 10.8 fl (7.5-11.1); MONO % 7.8 % (3.8-10.2); NEUT % 68.8 % (42.8-82.8); PLATELET COUNT 243 K/MM3 (134-434); RBC 4.43 M/mm3 (3.60-5.2); RDW 12.8 % (11.6-15.6); WHITE BLOOD COUNT 6.7 K/mm3 (4.0-10.0)
[2020-10-26 13:17] LABS: ALBUMIN 3.8 g/dl (3.4-5.0); BLOOD UREA NITROGEN 8.2 mg/dL (7-18)
[2020-10-26 13:20] LABS: CREATININE 0.8 mg/dL (0.55-1.3)
[2020-10-26 13:21] LABS: TOT PROT 7.3 g/dl (6.4-8.2)
[2020-10-26 13:24] LABS: BILIRUBIN,TOTAL 0.6 mg/dL (0.2-1)
[2020-10-26 15:15] LABS: EPI CELLS 12 /uL (0-25.1); HYALINE CASTS 1 /uL (0-3.1); URINE APPEARANCE CLOUDY; URINE BACTERIA 1412 /uL (0-1359); URINE BILIRUBIN NEGATIVE (NEGATIVE); URINE COLOR YELLOW; URINE GLUCOSE (UA) NEGATIVE (NEGATIVE); URINE KETONE NEGATIVE (NEGATIVE); URINE LEUK ESTERASE 3+ (NEGATIVE); URINE NITRITE NEGATIVE (NEGATIVE); URINE PROTEIN NEGATIVE (NEGATIVE); URINE RBC 4 /uL (0-23.9); URINE UROBILINOGEN 0.2 mg/dL (0.2-1.0); URINE WBC 1022 /uL (0-25.8)
[2020-10-26] MEDS ORDERED: CEFTRIAXONE 2,000 MG in DEXTROSE 5%-WATER - 50 ML IVPB ONE (15:25)
[2020-10-26] MEDS ORDERED: CEFTRIAXONE 2 GM/100 ML BAG IVPB ONE (15:42)
[2020-10-26 16:17] VITALS: BP 122/74; PULSE 78; TEMP 98
== END 2020-10-26 16:11 | disposition home or self-care (01) ==
LOC: JER 06:01
PROC: 3E03329 Introduction of Other Anti-infective into Peripheral Vein, Percutaneous Approach (ICD-10-PCS; principal; 2020-10-26)
PROC: 3E033GC Introduction of Other Therapeutic Substance into Peripheral Vein, Percutaneous Approach (ICD-10-PCS; 2020-10-26)
PROC: 3E0333Z Introduction of Anti-inflammatory into Peripheral Vein, Percutaneous Approach (ICD-10-PCS; 2020-10-26)
DX: N10 Acute pyelonephritis (principal)
CPT/HCPCS: 36415; 74177-TC; 76775-TC; 76856-TC; 80053; 81003; 83690; 84703; 85025; 85027; 87086; 99285-25; Q0162; Q9967

== ENCOUNTER 2021-01-15 19:10 | Emergency (ER) | payer OTHER ==
[2021-01-15 19:18] VITALS: BP 122/76; PULSE 90; TEMP 98.2; BMI 22.9
[2021-01-15] MEDS ORDERED: DEXAMETHASONE SOD PHOSPHATE 10 MG/1 ML VIAL IM ONE (19:33)
[2021-01-15] MEDS ORDERED: FAMOTIDINE 20 MG TABLET PO ONE (19:33)
[2021-01-15] MEDS ORDERED: FAMOTIDINE 20 MG TABLET ONE (19:43)
[2021-01-15] MEDS ORDERED: DEXAMETHASONE SOD PHOSPHATE 10 MG/1 ML VIAL ONE (19:43)
== END 2021-01-15 21:40 | disposition home or self-care (01) ==
LOC: JER 19:10 → JERFT 19:10
PROC: 3E0233Z Introduction of Anti-inflammatory into Muscle, Percutaneous Approach (ICD-10-PCS; principal; 2021-01-15)
DX: T78.40XA Allergy, unspecified, initial encounter (principal)
CPT/HCPCS: 99284-25; J1100

== ENCOUNTER 2021-05-12 14:16 | Emergency (ER) | payer OTHER ==
[2021-05-12 14:29] VITALS: BP 146/81; PULSE 95; TEMP 98; BMI 23.1
[2021-05-12] MEDS ORDERED: METOCLOPRAMIDE HCL 10 MG TABLET (FP) PO ONE ×2 (15:40→15:42)
[2021-05-12] MEDS ORDERED: ACETAMINOPHEN/CAFFEINE/BUTALBITAL 1 TAB PO ONE (15:40)
[2021-05-12] MEDS ORDERED: ACETAMINOPHEN/CAFFEINE/BUTALBITAL 1 TAB ONE (15:44)
[2021-05-12] MEDS ORDERED: KETOROLAC TROMETHAMINE 30 MG/1 ML VIAL IM ONE (16:11)
[2021-05-12] MEDS ORDERED: KETOROLAC TROMETHAMINE 30 MG/1 ML VIAL ONE (16:12)
== END 2021-05-12 17:19 | disposition home or self-care (01) ==
LOC: JER 14:16
PROC: 3E0233Z Introduction of Anti-inflammatory into Muscle, Percutaneous Approach (ICD-10-PCS; principal; 2021-05-12)
DX: G43.909 Migraine, unspecified, not intractable, without status migrainosus (principal)
CPT/HCPCS: 70450-TC; 99284-25

== ENCOUNTER 2021-06-24 05:14 | Emergency (ER) | payer OTHER ==
[2021-06-24 05:46] VITALS: BP 113/70; PULSE 88; TEMP 98.6; BMI 24.6
[2021-06-24] MEDS ORDERED: METOCLOPRAMIDE HCL INJECTION 10 MG/2 ML VIAL IVPB ONE (08:23)
[2021-06-24] MEDS ORDERED: METOCLOPRAMIDE HCL INJECTION 10 MG/2 ML VIAL ONE (09:24)
[2021-06-24] MEDS ORDERED: AMOX TR/POT CLAV 875MG/125MG TABLETS (FP) PO ONE (12:25)
[2021-06-24] MEDS ORDERED: AMOX TR/POT CLAV 875MG/125MG TABLETS (FP) ONE (12:39)
[2021-06-26 04:06] LABS: SARS-CoV-2 NAA Not Detected (Not Detected)
== END 2021-06-24 12:47 | disposition home or self-care (01) ==
LOC: JER 05:14
PROC: 3E033GC Introduction of Other Therapeutic Substance into Peripheral Vein, Percutaneous Approach (ICD-10-PCS; principal; 2021-06-24)
PROC: 3E033GC Introduction of Other Therapeutic Substance into Peripheral Vein, Percutaneous Approach (ICD-10-PCS; 2021-06-24)
DX: G43.909 Migraine, unspecified, not intractable, without status migrainosus (principal); H66.92 Otitis media, unspecified, left ear
CPT/HCPCS: 70450-TC; 99284-25; C9803; U0003; U0005

== ENCOUNTER 2021-12-25 07:58 | Emergency (ER) | payer OTHER ==
[2021-12-25 08:11] VITALS: BP 112/64; PULSE 79; TEMP 98; BMI 23.3
[2021-12-25] MEDS ORDERED: SODIUM CHLORIDE 500 ML IV STA (08:59)
== END 2021-12-25 10:02 | disposition home or self-care (01) ==
LOC: JER 07:58
PROC: 3E0337Z Introduction of Electrolytic and Water Balance Substance into Peripheral Vein, Percutaneous Approach (ICD-10-PCS; principal; 2021-12-25)
DX: U07.1 COVID-19 (principal)
CPT/HCPCS: 99284-25; C9803-CS; U0003; U0005

== ENCOUNTER 2022-03-09 13:36 | Emergency (ER) | payer OTHER ==
[2022-03-09 13:44] VITALS: BP 134/89; PULSE 107; RESP 19; TEMP 98.3; BMI 24.1
[2022-03-09 15:44] LABS: BASO % 0.2 % (0-2.0); EOS % 0.6 % (0-4.5); HEMATOCRIT 41.3 % (32.4-45.2); HEMOGLOBIN 14.1 GM/dL (10.7-15.3); LYMPH % 22.5 % (8-40); MCH 30.7 pg (25.7-33.7); MEAN CELL VOLUME 90.2 fl (80-96); MEAN PLT VOLUME 10.3 fl (7.5-11.1); MONO % 8.8 % (3.8-10.2); NEUT % 67.9 % (42.8-82.8); PLATELET COUNT 166 10^3/uL (134-434); RBC 4.58 M/mm3 (3.60-5.2); RDW 13.3 % (11.6-15.6); WHITE BLOOD COUNT 4.8 K/mm3 (4.0-10.0)
[2022-03-09 16:04] LABS: ALBUMIN 3.9 g/dl (3.4-5.0); BLOOD UREA NITROGEN 10.3 mg/dL (7-18); CALCIUM 8.6 mg/dL (8.5-10.1)
[2022-03-09 16:08] LABS: CREATININE 0.8 mg/dL (0.55-1.3)
[2022-03-09 16:09] LABS: TOT PROT 7.1 g/dl (6.4-8.2)
[2022-03-09 16:10] LABS: BILIRUBIN,TOTAL 0.3 mg/dL (0.2-1)
== END 2022-03-09 16:35 | disposition home or self-care (01) ==
LOC: JER 13:36
DX: R00.2 Palpitations (principal)
CPT/HCPCS: 36415; 71046-TC-FY; 80053; 84443; 84484; 84703; 85025; 93005; 93010; 99285-25